=== PATIENT | female | born 1955 | race Caucasian/White ===

== ENCOUNTER 2021-11-16 22:14 | Emergency (ER) | payer MEDICARE, MEDICAID ==
[~2021-11-16] VITALS: Ht 165.1 cm; Wt 57.6 kg
[~2021-11-16 22:14] MED LIST: AMOX500T92 PO; APIX5TAB OR; BACL10TA PO; CARV25TA PO; CITA20TA9 PO; DIG0125T PO; DOCU100C10 PO; FENO5TAB PO; FER325T PO; KEP500T PO; LUBI8CAP4 PO; MULTTAB5 OR; OMEP20CA74 PO; RAMI2.5C26 PO; SACC250C PO; SIMV10TA84 PO
[2021-11-16 23:22] LABS: Basophils # (auto) 0 10 ^3/uL (0-0.2); Basophils % (auto) 0.3 % (0.0-2.0); Eosinophils # (auto) 0.1 10 ^3/uL (0-0.8); Eosinophils % (auto) 0.7 % (0.0-7.0); Hematocrit 38.1 % (36.0-46.0); Hemoglobin 13.3 g/dL (12.2-16.2); Lymphocytes # (auto) 1.3 10 ^3/uL (0.4-5.4); Lymphocytes % (auto) 8.2 % (10.0-50.0); Mean Corpuscular Hemoglobin 31.8 pg (28.0-32.0); Mean Corpuscular Hgb Conc. 34.8 g/dL (32.0-36.0); Mean Corpuscular Volume 91.2 fL (80.0-100.0); Monocytes # (auto) 1.1 10 ^3/uL (0-1.3); Monocytes % (auto) 7.4 % (0.0-12.0); Neutrophils # (auto) 12.9 10 ^3/uL (1.6-8.6); Neutrophils % (auto) 83.4 % (37.0-80.0); Red Blood Cells 4.18 10^6/uL (4.0-5.20); Red Cell Distribution Width 13.1 % (11.8-14.3); White Blood Cell 15.5 10^3/uL (4.4-10.8)
[2021-11-16 23:37] LABS: INR 1.21 (0.9-1.15)
[2021-11-16 23:41] LABS: Albumin 3.3 g/dL (3.4-5.0); BUN/Creatinine Ratio 32.3; Calcium 9.5 mg/dL (8.5-10.1); Potassium 3.4 mmol/L (3.5-5.1)
[2021-11-16 23:44] LABS: Total Protein 6.6 g/dL (6.4-8.2)
[2021-11-17 02:33] LABS: Urine Bacteria MANY /hpf (None Seen); Urine Blood 3+ /uL (Negative); Urine Budding Yeast FEW /hpf (None Seen); Urine Mucus FEW (None Seen); Urine Specific Gravity 1.023 (1.001-1.035); Urine Sperm PRESENT /hpf (None Seen); Urine WBC 502 /hpf (0 - 5); Urine WBC Clumps PRESENT /hpf (None Seen)
[2021-11-17] MEDS ORDERED: MORPHINE SULFATE 4 MG/ML SYR/VIAL IV ONE (03:15)
[2021-11-17] MEDS ORDERED: cefTRIAXone 1GM/50ML D5W 50 ML IV ONE (04:00)
[2021-11-17] MEDS ORDERED: DOCUSATE SOD 100 MG CAP PO PRN (04:00)
[2021-11-17] MEDS ORDERED: ACETAMINOPHEN 325 MG TAB PO PRN (04:00)
[2021-11-17] MEDS ORDERED: ONDANSETRON HCL 4 MG/2 ML VIAL IV PRN (04:00)
[2021-11-17] MEDS ORDERED: HYDROcodone-ACET 5/325MG TAB PO PRN (04:00)
[2021-11-17 06:00] VITALS: BP 116/48
[2021-11-17] MEDS ORDERED: SODIUM CHLOR 0.9% PF (SALINE LOCK) 10ML VIAL/SYR IV SCH (06:00)
[2021-11-17] MEDS ORDERED: cefTRIAXone 1GM/50ML D5W 50 ML IV SCH (09:00)
[2021-11-17] MEDS ORDERED: MULTIPLE VITAMIN TAB PO SCH (10:00)
[2021-11-17] MEDS ORDERED: FAMOTIDINE (10MG/ML) 2ML VL IV SCH (10:00)
[2021-11-17] MEDS ORDERED: APIXABAN 2.5 MG TAB PO SCH (10:00)
[2021-11-17] MEDS ORDERED: ZINC SULFATE 220mg CAP or TAB PO SCH (10:00)
[2021-11-17] MEDS ORDERED: ASCORBIC ACID 500 MG TAB PO SCH (10:00)
== END 2021-11-17 07:05 | disposition home or self-care (01) ==
LOC: EDBD 22:14 → ER 22:23
DX: N39.0 Urinary tract infection, site not specified (principal); M79.662 Pain in left lower leg
CPT/HCPCS: 36415; 73590; 80053; 81001; 83880; 84484; 85025; 85610; 85730; 87040; 87077; 87086; 87088; 87186; 93005; 93971; 96365; 96375; 99285; J0696; J2270